=== PATIENT | female | born 1940 | race Caucasian/White ===

== ENCOUNTER 2019-04-15 00:18 | Inpatient (IN) ==
[2019-04-15 01:50] LABS: Bilirubin,Urine Negative (Negative); Blood,Urine Negative (Negative); Clarity,Urine Clear (Clear); Color,Urine Yellow (Yellow); Glucose,Urine (UA) Normal (Normal); Ketones,Urine Negative (Negative); Leukocyte Esterase,Urine Negative (Negative); Nitrite,Urine Negative (Negative); Protein,Urine 100 mg/dL (Neg-Trace); Urobilinogen,Urine Normal (Normal)
[2019-04-15 01:52] LABS: Bacteria,Urine None Seen per hpf (None-Few); Hyaline Casts,Urine None Seen per lpf (None-Few); RBC,Urine 0-3 per hpf (0-3); Squamous Epithelial Cell,Urine Many per lpf (None-Few); WBC,Urine 0-3 per hpf (0-3)
[2019-04-15 01:52] LABS: Basophils # 0.1 K/mcL (0.0-0.2); Basophils % 1.2 %; Eosinophils # 0.3 K/mcL (0.0-0.6); Eosinophils % 5.2 %; Hematocrit 40.3 % (35.3-44.9); Hemoglobin 13.5 g/dL (11.5-15.4); Immature Granulocytes % 0.3 % (0-4); Lymphocytes # 2.7 K/mcL (0.6-4.6); Lymphocytes % 41.8 %; Mean Corpuscular HGB Conc 33.5 g/dL (31.6-35.5); Mean Corpuscular Hemoglobin 32.5 pg (28.0-33.3); Mean Corpuscular Volume 96.9 fL (83.0-100.0); Mean Platelet Volume 8.6 fL (9.4-12.4); Monocytes # 0.7 K/mcL (0.0-1.3); Monocytes % 10.1 %; Neutrophils # 2.7 K/mcL (1.6-8.9); Platelet Count 304 K/mcL (140-400); Red Blood Count 4.16 M/mcL (3.82-4.97); Red Cell Distribution Width 12.8 % (11.5-14.5); Segmented Neutrophils % 41.4 %; White Blood Count 6.5 K/mcL (4.3-11.1)
[2019-04-15 02:02] LABS: Alanine Aminotransferase 18 Units/L (7-52); Albumin 3.9 g/dL (3.5-5.7); Albumin/Globulin Ratio 1.1 (1.1-2.2); Alkaline Phosphatase 61 Units/L (34-104); Aspartate Amino Transferase 18 Units/L (13-39); BUN/Creatinine Ratio 17 (6-26); Bilirubin,Indirect 0.2 mg/dL (0.0-1.0); Bilirubin,Total 0.2 mg/dL (0.3-1.0); Blood Urea Nitrogen 19 mg/dL (8-23); Calcium 10.7 mg/dL (8.6-10.3); Carbon Dioxide 28 mEq/L (23-29); Chloride 101 mEq/L (98-107); Ethanol < 10 mg/dL (Less than 10); Globulin 3.4 g/dL (2.4-3.5); Glucose 161 mg/dL (70-105); Osmolality,Calculated 292 (280-300); Potassium 3.8 mEq/L (3.5-5.1); Sodium 138 mEq/L (136-145); Total Protein 7.3 g/dL (6.4-8.9); eGFR For African Americans 57 (> 60); eGFR For Non-African Americans 47 (> 60)
[2019-04-15] MEDS ORDERED: niCARdipine 20 MG in 0.9 % Sodium Chloride 192 ML IVC SCH (05:30)
[2019-04-15] MEDS ORDERED: Naloxone 0.4 MG/ML INJ IVP PRN (06:03)
[2019-04-15] MEDS ORDERED: Ondansetron 4 MG/2 ML VIAL IVP PRN (06:03)
[2019-04-15] MEDS ORDERED: Gadolinium Contrast Agent (WT Based) IV PRN (06:05)
[2019-04-15] MEDS ORDERED: *HR* HYDROcodone/Acet 5/325 mg TABLET PO PRN (06:06)
[2019-04-15] MEDS ORDERED: Furosemide 20 MG TABLET PO SCH (09:00)
[2019-04-15] MEDS ORDERED: amLODIPine 5 MG TABLET PO SCH (09:00)
[2019-04-15] MEDS ORDERED: ALPRAZolam 0.25 MG TABLET PO PRN (09:00)
[2019-04-15] MEDS ORDERED: FELODIPINE 2.5 MG PO SCH ×2 (09:00→21:00)
[2019-04-15] MEDS: Loratadine 10 MG TABLET PO SCH (09:00)
[2019-04-15] MEDS ORDERED: LISINOPRIL PO ONE (11:00)
[2019-04-15] MEDS: *HR* Heparin 5,000 UNIT/ML VIAL SQ SCH ×2 (15:07→20:01)
[2019-04-15] MEDS: carvediloL 6.25 MG TABLET PO SCH (17:14)
[2019-04-15] MEDS: *HR* HYDROcodone/Acet 5/325 mg TABLET PO PRN (20:01)
[2019-04-15] MEDS: FELODIPINE PO SCH (20:02)
[2019-04-16 04:50] LABS: Basophils # 0.1 K/mcL (0.0-0.2); Basophils % 0.7 %; Eosinophils # 0.3 K/mcL (0.0-0.6); Eosinophils % 4.2 %; Hematocrit 36.7 % (35.3-44.9); Hemoglobin 11.6 g/dL (11.5-15.4); Immature Granulocytes % 0.1 % (0-4); Lymphocytes # 3.4 K/mcL (0.6-4.6); Lymphocytes % 50.6 %; Mean Corpuscular HGB Conc 31.6 g/dL (31.6-35.5); Mean Corpuscular Hemoglobin 31.7 pg (28.0-33.3); Mean Corpuscular Volume 100.3 fL (83.0-100.0); Mean Platelet Volume 8.5 fL (9.4-12.4); Monocytes # 0.7 K/mcL (0.0-1.3); Monocytes % 10.1 %; Neutrophils # 2.3 K/mcL (1.6-8.9); Platelet Count 243 K/mcL (140-400); Red Blood Count 3.66 M/mcL (3.82-4.97); Red Cell Distribution Width 13.1 % (11.5-14.5); Segmented Neutrophils % 34.3 %; White Blood Count 6.7 K/mcL (4.3-11.1)
[2019-04-16 04:59] LABS: Calcium 9.4 mg/dL (8.6-10.3); Magnesium 1.5 mg/dL (1.6-2.6); Potassium 3.9 mEq/L (3.5-5.1)
[2019-04-16] MEDS: *HR* Heparin 5,000 UNIT/ML VIAL SQ SCH ×3 (05:13→19:48)
[2019-04-16] MEDS: Magnesium Oxide 400 MG TABLET PO SCH ×2 (07:43→19:44)
[2019-04-16] MEDS: carvediloL 6.25 MG TABLET PO SCH ×2 (07:43→17:33)
[2019-04-16] MEDS: Lisinopril 20 MG TABLET PO SCH (07:43)
[2019-04-16] MEDS: Loratadine 10 MG TABLET PO SCH (07:44)
[2019-04-16] MEDS: FELODIPINE PO SCH ×2 (07:45→19:43)
[2019-04-16] MEDS: 0.9 % Sodium Chloride 1,000 ML IVC SCH ×2 (09:18→19:44)
[2019-04-16] MEDS: *HR* HYDROcodone/Acet 5/325 mg TABLET PO PRN (19:44)
[2019-04-17 04:32] LABS: Calcium 8.8 mg/dL (8.6-10.3); Magnesium 2.1 mg/dL (1.6-2.6); Potassium 3.9 mEq/L (3.5-5.1)
[2019-04-17] MEDS: *HR* Heparin 5,000 UNIT/ML VIAL SQ SCH (05:06)
[2019-04-17] MEDS ORDERED: Aspirin Enteric Coated 81 MG Tablet PO SCH (09:00)
[2019-04-17] MEDS: Loratadine 10 MG TABLET PO SCH (09:35)
[2019-04-17] MEDS: carvediloL 6.25 MG TABLET PO SCH (09:35)
[2019-04-17] MEDS: FELODIPINE PO SCH (09:35)
[2019-04-17] MEDS: Lisinopril 20 MG TABLET PO SCH (09:35)
[2019-04-17 10:46] VITALS: BP 143/48
== END 2019-04-17 15:36 | disposition home or self-care (01) | DRG 305 ==
LOC: EMEROOARM 00:18 → 2NNU 00:18 → SUATTDRO 05:27 → 2NNU 05:52 → CDU 04-16 23:50
PROVIDERS: ADMIT Student in an Organized Health Care Education/Training Program; ATTEND Internal Medicine

== ENCOUNTER 2019-06-29 15:19 | Inpatient (IN) ==
[2019-06-29] MEDS ORDERED: Ondansetron 4 MG/2 ML VIAL IVP ONE (15:47)
[2019-06-29] MEDS ORDERED: *HR* FentaNYL (PF) 100 MCG/2 ML VIAL IVP ONE (15:47)
[2019-06-29 16:09] LABS: Basophils % 0.3 %; Eosinophils # 0.1 K/mcL (0.0-0.6); Eosinophils % 0.9 %; Hematocrit 34.7 % (35.3-44.9); Hemoglobin 11.1 g/dL (11.5-15.4); Immature Granulocytes % 0.2 % (0-4); Lymphocytes % 21.9 %; Mean Corpuscular Hemoglobin 30.5 pg (28.0-33.3); Mean Corpuscular Volume 95.3 fL (83.0-100.0); Mean Platelet Volume 8.4 fL (9.4-12.4); Monocytes # 1.1 K/mcL (0.0-1.3); Monocytes % 11.7 %; Neutrophils # 5.9 K/mcL (1.6-8.9); Platelet Count 248 K/mcL (140-400); Red Blood Count 3.64 M/mcL (3.82-4.97); Red Cell Distribution Width 12.1 % (11.5-14.5); White Blood Count 9.1 K/mcL (4.3-11.1)
[2019-06-29 16:11] LABS: INR 1.1; Prothrombin Time 12.1 Seconds (9.4-12.1)
[2019-06-29 16:24] LABS: Albumin 3.7 g/dL (3.5-5.7); Albumin/Globulin Ratio 1.3 (1.1-2.2); Bilirubin,Total 0.5 mg/dL (0.3-1.0); Calcium 10.1 mg/dL (8.6-10.3); Globulin 2.9 g/dL (2.4-3.5); Potassium 3.4 mEq/L (3.5-5.1); Total Protein 6.6 g/dL (6.4-8.9)
[2019-06-29] MEDS ORDERED: Ondansetron 4 MG/2 ML VIAL IVP PRN (20:16)
[2019-06-29] MEDS ORDERED: Furosemide 40 MG TABLET PO PRN (21:37)
[2019-06-29] MEDS ORDERED: 0.9 % Sodium Chloride 1,000 ML IVC SCH (21:45)
[2019-06-30] MEDS: Ampicillin/Sulbactam 3,000 MG in 0.9 % Sodium Chloride Mini Bag 100 ML IVPB SCH ×4 (00:32→16:17)
[2019-06-30] MEDS ORDERED: carvediloL 25 MG TABLET PO SCH (08:00)
[2019-06-30] MEDS ORDERED: hydrALAZINE 25 MG TABLET PO SCH (09:00)
[2019-06-30] MEDS ORDERED: *HR* FentaNYL (PF) 100 MCG/2 ML VIAL ONE (09:42)
[2019-06-30] MEDS ORDERED: *HR* Propofol 200 MG/20 ML VIAL IVP ONE (09:42)
[2019-06-30] MEDS ORDERED: Ondansetron 4 MG/2 ML VIAL ONE (09:43)
[2019-06-30] MEDS ORDERED: Lidocaine -MPF 2% 2 ML VIAL ONE (09:43)
[2019-06-30] MEDS ORDERED: Dexamethasone 4 MG/ML VIAL ONE (09:43)
[2019-06-30] MEDS ORDERED: *HR* PHENYLEPHRINE 1,000 MCG/10 ML SYRINGE IVP ONE (10:19)
[2019-06-30] MEDS ORDERED: *HR* HYDROMORPHONE 2 MG/ML VIAL ONE (10:33)
[2019-06-30] MEDS ORDERED: *HR* HYDROmorphone PF 0.5 MG/0.5 ML SYRINGE IVP PRN (10:54)
[2019-06-30] MEDS ORDERED: *HR* OxyCODONE Immed Rel 5 MG TABLET PO PRN (10:54)
[2019-06-30] MEDS ORDERED: Furosemide 40 MG TABLET PO PRN (12:19)
[2019-06-30] MEDS ORDERED: Ondansetron 4 MG/2 ML VIAL IVP PRN (12:19)
[2019-06-30] MEDS: 0.9 % Sodium Chloride 1,000 ML IVC SCH ×2 (13:10→22:06)
[2019-06-30] MEDS: Acetaminophen IV 1,000 MG/100 ML INFUS..BTL IVPB SCH ×2 (13:11→16:52)
[2019-06-30] MEDS: hydrALAZINE 25 MG TABLET PO SCH ×2 (15:00→22:04)
[2019-06-30] MEDS: carvediloL 25 MG TABLET PO SCH (16:15)
[2019-07-01] MEDS: Ampicillin/Sulbactam 3,000 MG in 0.9 % Sodium Chloride Mini Bag 100 ML IVPB SCH ×3 (00:53→11:37)
[2019-07-01] MEDS: Acetaminophen IV 1,000 MG/100 ML INFUS..BTL IVPB SCH ×3 (00:53→11:36)
[2019-07-01] MEDS: 0.9 % Sodium Chloride 1,000 ML IVC SCH ×2 (04:40→05:30)
[2019-07-01] MEDS: carvediloL 25 MG TABLET PO SCH (07:14)
[2019-07-01] MEDS: hydrALAZINE 25 MG TABLET PO SCH ×2 (07:14→14:16)
[2019-07-01 11:25] VITALS: BP 132/64
== END 2019-07-01 14:40 | disposition home or self-care (01) | DRG 418 ==
LOC: EMEROOARM 15:19 → 3ANU 15:19
PROVIDERS: ADMIT Surgery; ATTEND Surgery

== ENCOUNTER 2020-03-06 12:11 | Observation (INO) ==
[2020-03-06 12:50] LABS: Hematocrit 37.6 % (35.3-44.9); Hemoglobin 12.2 g/dL (11.5-15.4); Mean Corpuscular HGB Conc 32.4 g/dL (31.6-35.5); Mean Corpuscular Hemoglobin 30.4 pg (28.0-33.3); Mean Corpuscular Volume 93.8 fL (83.0-100.0); Mean Platelet Volume 8.6 fL (9.4-12.4); Platelet Count 208 K/mcL (140-400); Red Blood Count 4.01 M/mcL (3.82-4.97); Red Cell Distribution Width 12.4 % (11.5-14.5); White Blood Count 5.9 K/mcL (4.3-11.1)
[2020-03-06 12:56] LABS: Prothrombin Time 11.9 Seconds (9.4-12.1)
[2020-03-06 12:59] LABS: Activated Partial Thrombo Time 27.2 Seconds (26.0-36.0)
[2020-03-06 13:20] LABS: BUN/Creatinine Ratio 14 (6-26); Blood Urea Nitrogen 18 mg/dL (8-23); Calcium 9.4 mg/dL (8.6-10.3); Carbon Dioxide 27 mEq/L (23-29); Chloride 100 mEq/L (98-107); Glucose 132 mg/dL (70-105); Osmolality,Calculated 290 (280-300); Potassium 3.2 mEq/L (3.5-5.1); Sodium 138 mEq/L (136-145); Troponin I < 0.03 ng/mL (< 0.04); eGFR For African Americans 48 (> 60); eGFR For Non-African Americans 40 (> 60)
[2020-03-06] MEDS ORDERED: Mag Hydrox/Al Hydrox/Simeth 30 ML UDC PO PRN (14:44)
[2020-03-06] MEDS ORDERED: Ondansetron 4 MG/2 ML VIAL IVP PRN (14:44)
[2020-03-06] MEDS ORDERED: Naloxone 0.4 MG/ML INJ IVP PRN (14:44)
[2020-03-06] MEDS ORDERED: Acetaminophen 325 MG TABLET PO PRN (14:44)
[2020-03-06] MEDS ORDERED: MOM Conc 10 ML UD.LIQ PO PRN (14:44)
[2020-03-06] MEDS ORDERED: *HR* HYDROcodone/Acet 5/325 mg TABLET PO PRN (14:44)
[2020-03-06] MEDS ORDERED: Perflutren Lipid Microsphere 1.3 ML in 0.9 % Sodium Chloride 8.7 ML IVP PRN (14:47)
[2020-03-06] MEDS ORDERED: Aspirin Enteric Coated 325 MG Tablet PO ONE (15:00)
[2020-03-06] MEDS: *HR* Heparin 5,000 UNIT/ML VIAL SQ SCH (20:02)
[2020-03-06] MEDS ORDERED: ALPRAZolam 0.25 MG TABLET PO PRN (22:51)
[2020-03-07 04:40] LABS: Hematocrit 36.4 % (35.3-44.9); Hemoglobin 11.9 g/dL (11.5-15.4); Mean Corpuscular HGB Conc 32.7 g/dL (31.6-35.5); Mean Corpuscular Hemoglobin 31.5 pg (28.0-33.3); Mean Corpuscular Volume 96.3 fL (83.0-100.0); Mean Platelet Volume 8.6 fL (9.4-12.4); Platelet Count 192 K/mcL (140-400); Red Blood Count 3.78 M/mcL (3.82-4.97); Red Cell Distribution Width 12.5 % (11.5-14.5); White Blood Count 5.5 K/mcL (4.3-11.1)
[2020-03-07 05:07] LABS: Albumin 3.4 g/dL (3.5-5.7); Albumin/Globulin Ratio 1.2 (1.1-2.2); Bilirubin,Total 0.5 mg/dL (0.3-1.0); Calcium 9.4 mg/dL (8.6-10.3); Chol/HDL Ratio 3.9 (0-4.9); Globulin 2.9 g/dL (2.4-3.5); Magnesium 1.5 mg/dL (1.6-2.6); Phosphorous 3.6 mg/dL (2.7-4.5); Potassium 3.1 mEq/L (3.5-5.1); Total Protein 6.3 g/dL (6.4-8.9)
[2020-03-07] MEDS: *HR* Heparin 5,000 UNIT/ML VIAL SQ SCH (05:17)
[2020-03-07 07:11] VITALS: BP 174/83
[2020-03-07] MEDS ORDERED: Furosemide 40 MG TABLET PO PRN (07:27)
[2020-03-07] MEDS ORDERED: Magnesium Oxide 400 MG TABLET PO SCH (09:00)
[2020-03-07] MEDS ORDERED: Aspirin 81 MG TAB.CHEW PO SCH (09:00)
[2020-03-07] MEDS ORDERED: carvediloL 25 MG TABLET PO SCH (09:00)
[2020-03-07] MEDS ORDERED: hydrALAZINE 25 MG TABLET PO SCH (09:00)
[2020-03-07] MEDS ORDERED: Loratadine 10 MG TABLET PO SCH (09:00)
== END 2020-03-07 11:43 | disposition home or self-care (01) ==
LOC: EMEROOARM 12:11 → 3BNU 12:11
PROVIDERS: ADMIT Internal Medicine; ATTEND Internal Medicine

== ENCOUNTER 2021-08-26 12:17 | Inpatient (IN) ==
[2021-08-26] MEDS ORDERED: Isovue-370 500 ML BOTTLE IVP ONE (14:12)
[2021-08-26 14:40] LABS: Basophils # 0.1 K/mcL (0.0-0.2); Basophils % 0.8 %; Eosinophils # 0.1 K/mcL (0.0-0.6); Hematocrit 31.1 % (35.3-44.9); Hemoglobin 9.4 g/dL (11.5-15.4); Immature Granulocytes % 0.4 % (0-4); Lymphocytes # 1.9 K/mcL (0.6-4.6); Lymphocytes % 26.3 %; Mean Corpuscular HGB Conc 30.2 g/dL (31.6-35.5); Mean Corpuscular Hemoglobin 28.3 pg (28.0-33.3); Mean Corpuscular Volume 93.7 fL (83.0-100.0); Mean Platelet Volume 8.7 fL (9.4-12.4); Monocytes # 0.8 K/mcL (0.0-1.3); Monocytes % 10.9 %; Neutrophils # 4.2 K/mcL (1.6-8.9); Platelet Count 321 K/mcL (140-400); Red Blood Count 3.32 M/mcL (3.82-4.97); Red Cell Distribution Width 13.4 % (11.5-14.5); Segmented Neutrophils % 59.6 %; White Blood Count 7.1 K/mcL (4.3-11.1)
[2021-08-26 14:47] LABS: INR 1.2; Prothrombin Time 13.4 Seconds (9.4-12.1)
[2021-08-26 14:50] LABS: Activated Partial Thrombo Time 37.5 Seconds (26.0-36.0)
[2021-08-26 14:57] LABS: Albumin 3.2 g/dL (3.5-5.7); Albumin/Globulin Ratio 0.8 (1.1-2.2); Bilirubin,Total 0.4 mg/dL (0.3-1.0); Calcium 9.5 mg/dL (8.6-10.3); Potassium 4.1 mEq/L (3.5-5.1); Total Protein 7.2 g/dL (6.4-8.9)
[2021-08-26] MEDS ORDERED: Naloxone 0.4 MG/ML INJ IVP PRN (16:53)
[2021-08-26] MEDS ORDERED: Ondansetron ODT 4 MG TAB.RAPDIS SL PRN (16:53)
[2021-08-26] MEDS ORDERED: Perflutren Lipid Microsphere 1.3 ML in 0.9 % Sodium Chloride 8.7 ML IVP PRN (16:57)
[2021-08-26] MEDS ORDERED: Ipratropium/Albuterol Neb 3 ML IH PRN (16:58)
[2021-08-26] MEDS: Acetaminophen 325 MG TABLET PO PRN (19:24)
[2021-08-26 19:32] LABS: Lactate Dehydrogenase 177 Units/L (140-271); Total Protein 6.8 g/dL (6.4-8.9)
[2021-08-26] MEDS: carvediloL 25 MG TABLET PO SCH (20:54)
[2021-08-26] MEDS: hydrALAZINE 25 MG TABLET PO SCH (20:54)
[2021-08-27 01:50] LABS: Calcium 9.2 mg/dL (8.6-10.3); Magnesium 2.2 mg/dL (1.6-2.6); Phosphorous 4.1 mg/dL (2.7-4.5); Potassium 4.2 mEq/L (3.5-5.1)
[2021-08-27] MEDS: ALPRAZolam 0.25 MG TABLET PO PRN (04:15)
[2021-08-27] MEDS: Acetaminophen 325 MG TABLET PO PRN ×2 (04:16→09:46)
[2021-08-27] MEDS: Magnesium Oxide 400 MG TABLET PO SCH (08:16)
[2021-08-27] MEDS: hydrALAZINE 25 MG TABLET PO SCH ×3 (08:16→20:47)
[2021-08-27] MEDS: carvediloL 25 MG TABLET PO SCH ×2 (08:16→15:40)
[2021-08-27] MEDS ORDERED: *HR* OxyCODONE/APAP 5/325 TABLET PO PRN (10:41)
[2021-08-27] MEDS ORDERED: *HR* HYDROcodone/Acet 5/325 mg TABLET PO PRN (11:01)
[2021-08-27 13:29] LABS: Total Protein,Pleural Fluid 3.8 g/dL
[2021-08-27 14:14] LABS: Appearance of Pleural Fl Cloudy (Clear)
[2021-08-27 14:36] LABS: Basophils,Pleural Fluid 0 %
[2021-08-27] MEDS: *HR* HYDROcodone/Acet 5/325 mg TABLET PO PRN (18:08)
[2021-08-27] MEDS ORDERED: *HR* HYDROcodone/Acet 5/325 mg TABLET PO ONE (23:18)
[2021-08-28] MEDS: *HR* HYDROcodone/Acet 5/325 mg TABLET PO PRN ×2 (00:08→21:04)
[2021-08-28 05:43] LABS: Basophils % 0.5 %; Eosinophils # 0.2 K/mcL (0.0-0.6); Hematocrit 27.9 % (35.3-44.9); Hemoglobin 8.3 g/dL (11.5-15.4); Immature Granulocytes % 0.5 % (0-4); Lymphocytes # 1.4 K/mcL (0.6-4.6); Lymphocytes % 24.8 %; Mean Corpuscular HGB Conc 29.7 g/dL (31.6-35.5); Mean Corpuscular Hemoglobin 27.7 pg (28.0-33.3); Mean Platelet Volume 8.1 fL (9.4-12.4); Monocytes # 0.6 K/mcL (0.0-1.3); Monocytes % 11.1 %; Neutrophils # 3.2 K/mcL (1.6-8.9); Platelet Count 317 K/mcL (140-400); Red Cell Distribution Width 13.4 % (11.5-14.5); Segmented Neutrophils % 59.1 %; White Blood Count 5.5 K/mcL (4.3-11.1)
[2021-08-28 06:04] LABS: Calcium 9.1 mg/dL (8.6-10.3)
[2021-08-28] MEDS ORDERED: Acetaminophen IV 1,000 MG/100 ML BAG IVPB ONE (06:32)
[2021-08-28] MEDS: Magnesium Oxide 400 MG TABLET PO SCH (08:15)
[2021-08-28] MEDS: Furosemide 40 MG TABLET PO SCH (08:15)
[2021-08-28] MEDS: hydrALAZINE 25 MG TABLET PO SCH ×3 (08:15→21:04)
[2021-08-28] MEDS: carvediloL 25 MG TABLET PO SCH ×2 (08:15→18:32)
[2021-08-28] MEDS: Aspirin 81 MG TAB.CHEW PO SCH (08:15)
[2021-08-28] MEDS: Azithromycin 500 MG in 0.9 % Sodium Chloride 250 ML IVPB SCH (08:15)
[2021-08-28] MEDS: Loratadine 10 MG TABLET PO SCH (08:15)
[2021-08-28] MEDS: cefTRIAXone 2,000 MG in 0.9 % Sodium Chloride 20 ML IVP SCH (08:43)
[2021-08-28] MEDS ORDERED: Nystatin SUSP 5 ML UD.LIQ PO PRN (18:22)
[2021-08-28 20:11] LABS: Fluid Source for Cholesterol PLEURAL FLUID
[2021-08-28] MEDS: ALPRAZolam 0.25 MG TABLET PO PRN (21:04)
[2021-08-29 01:04] LABS: Basophils % 0.7 %; Eosinophils # 0.3 K/mcL (0.0-0.6); Eosinophils % 4.9 %; Hematocrit 27.3 % (35.3-44.9); Hemoglobin 8.1 g/dL (11.5-15.4); Immature Granulocytes % 0.2 % (0-4); Lymphocytes # 1.5 K/mcL (0.6-4.6); Lymphocytes % 26.5 %; Mean Corpuscular HGB Conc 29.7 g/dL (31.6-35.5); Mean Corpuscular Hemoglobin 27.5 pg (28.0-33.3); Mean Corpuscular Volume 92.5 fL (83.0-100.0); Mean Platelet Volume 8.2 fL (9.4-12.4); Monocytes # 0.6 K/mcL (0.0-1.3); Monocytes % 11.1 %; Neutrophils # 3.1 K/mcL (1.6-8.9); Platelet Count 302 K/mcL (140-400); Red Blood Count 2.95 M/mcL (3.82-4.97); Red Cell Distribution Width 13.3 % (11.5-14.5); Segmented Neutrophils % 56.6 %; White Blood Count 5.5 K/mcL (4.3-11.1)
[2021-08-29 01:21] LABS: Calcium 9.2 mg/dL (8.6-10.3)
[2021-08-29 06:33] LABS: Cholesterol,Body Fluid 55 mg/dL
[2021-08-29] MEDS: hydrALAZINE 25 MG TABLET PO SCH (09:02)
[2021-08-29] MEDS: Magnesium Oxide 400 MG TABLET PO SCH (09:02)
[2021-08-29] MEDS: carvediloL 25 MG TABLET PO SCH (09:03)
[2021-08-29] MEDS: cefTRIAXone 2,000 MG in 0.9 % Sodium Chloride 20 ML IVP SCH (09:03)
[2021-08-29] MEDS: Loratadine 10 MG TABLET PO SCH (09:03)
[2021-08-29] MEDS: Azithromycin 500 MG in 0.9 % Sodium Chloride 250 ML IVPB SCH (09:04)
[2021-08-29] MEDS: Aspirin 81 MG TAB.CHEW PO SCH (09:04)
[2021-08-29] MEDS: Furosemide 40 MG TABLET PO SCH (09:08)
[2021-08-29] MEDS: *HR* HYDROcodone/Acet 5/325 mg TABLET PO PRN (09:23)
[2021-08-29 12:09] VITALS: BP 152/69; PULSE 80; TEMP 98; O2SAT 90
== END 2021-08-29 13:27 | disposition home or self-care (01) | DRG 187 ==
LOC: 2ANU 12:17 → EMEROOARM 12:17 → SUATTDRO 17:34 → 2ANU 18:38 → SUATTDRO 08-27 16:56
PROVIDERS: ADMIT Internal Medicine; ATTEND Internal Medicine